=== PATIENT | female | born 1930 | race Caucasian/White ===

== ENCOUNTER 2017-09-14 08:18 | Emergency (ER) | payer MEDICARE, MEDICAID ==
--- NOTE | 2017-09-14 09:46 | EDM.PDOC ---
ED HPI GENERAL MEDICAL PROBLEM - General Chief Complaint: General Stated Complaint: Fall without LOC Time Seen by Provider: 09/14/17 08:35 Source of Information: Reports: Other ([facility] staff/EMS) History Limitations: Reports: Altered Mental Status (dementia) - History of Present Illness INITIAL COMMENTS - FREE TEXT/NARRATIVE: Patient sent here for evaluation after falling in room. Has history of falls/ syncope. BP noted to be low at time of incident today. Hit head on a shelf. No specifically known LOC. Was complaining of some head discomfort on scene. Also complained of some back discomfort but has chronic back pain of this same nature per PA staff. Hx of dementia. Is pleasant, talking with staff. One member familiar with patient thought that patient's speech might be a bit slurred compared to normal, stroke code called. History of dementia. - Related Data Allergies Allergy/AdvReac Type Severity Reaction Status Date / Time adhesive tape Allergy Irritabilit Verified 03/23/16 14:36 y azithromycin Allergy Cannot Verified 03/23/16 14:36 Remember Latex, Natural Rubber Allergy Irritabilit Verified 03/23/16 14:36 y levofloxacin [From Levaquin] Allergy Cannot Verified 03/23/16 14:36 Remember lisinopril Allergy Cannot Verified 03/23/16 14:33 Remember morphine Allergy Cannot Verified 03/23/16 14:33 Remember nitrofurantoin Allergy Cannot Verified 03/23/16 14:36 [From Macrodantin] Remember Penicillins Allergy Cannot Verified 03/23/16 14:36 Remember Sulfa (Sulfonamide Allergy Cannot Verified 03/23/16 14:36 Antibiotics) Remember cleaning products Allergy Cannot Uncoded 03/23/16 14:33 Remember Home Meds: Home Meds Aspirin [Halfprin] 81 mg PO DAILY@1800 04/30/14 [History] Calcium Carbonate/Vitamin D3 [Calcium 600-Vit D3 400 Tablet] 400 - 600 mg PO BID 04/30/14 [History] Cyanocobalamin (Vitamin B12) [Vitamin B12] 1,000 mcg IM Q30D 04/30/14 [History] Donepezil [Aricept] 10 mg PO BEDTIME 04/30/14 [History] Ferrous Sulfate 325 mg PO DAILY 04/30/14 [History] Levothyroxine [Synthroid] 75 mcg PO DAILY 04/30/14 [History] Multivitamin W/Iron, Minerals [Theratrum Complete 50 Plus] 1 tab PO DAILY [History] Simvastatin 20 mg PO BEDTIME 04/30/14 [History] amLODIPine Besylate [Amlodipine Besylate] 10 mg PO DAILY 04/30/14 [History] Nitroglycerin [Nitrostat] 0.4 mg SL Q5M PRN 10/13/14 [History] Ascorbic Acid [Vitamin C] 250 mg PO DAILY@18 03/03/16 [History] Cetirizine [ZyrTEC] 10 mg PO DAILY 03/03/16 [History] Light Mineral Oil/Min Oil/Pf [Retaine Mgd Eye Drops] 1 each OP Q12H 03/03/16 [ History] Sennosides [Senna] 8.6 mg PO DAILY 03/03/16 [History] traMADol HCl [Ultram] 50 mg PO Q12H 03/03/16 [History] Acetaminophen [Tylenol] 650 mg PO Q4HR PRN 03/07/16 [History] Clindamycin HCl [Cleocin] 4 cap PO ASDIRECTED PRN 03/07/16 [History] Memantine [Namenda] 10 mg PO BID 09/14/17 [History] Flint-3 Fatty Acids/Fish Oil [Fish Oil 1,000 mg Softgel] 2 cap PO DAILY [History] Omeprazole Magnesium [Prilosec Otc] 20 mg PO DAILY 09/14/17 [History] PARoxetine [Paxil] 5 mg PO DAILY 09/14/17 [History] Potassium Chloride 10 meq PO DAILY 09/14/17 [History] Trolamine Salicylate [Arthricreme] 1 applic TOP Q12HR PRN 09/14/17 [History] Past Medical History Cardiovascular History: Reports: Arrhythmia, Hypertension Other Cardiovascular History: Cardiac Dysrhythemia. Cardiac Valvular Disease Musculoskeletal History: Reports: Arthritis, Back Pain, Chronic, Osteoarthritis , Other (See Below) (severe degenerative changes noted on neck CT) Neurological History: Reports: Alzheimers Disease, Migraines Psychiatric History: Reports: Alzheimers Disease Endocrine/Metabolic History: Reports: Hypothyroidism - Past Surgical History Musculoskeletal Surgical History: Reports: Other (See Below) Social & Family History - Tobacco Use Smoking Status *Q: Never Smoker Second Hand Smoke Exposure: No - Caffeine Use Caffeine Use: Reports: Coffee - Alcohol Use Days Per Week of Alcohol Use: 0 - Recreational Drug Use Recreational Drug Use: No ED ROS GENERAL - Review of Systems Review Of Systems: ROS reveals no pertinent complaints other than HPI. (limited by patient's dementia) HEENT: Reports: Nose Pain. Denies: Dental Pain, Eye Pain Respiratory: Reports: No Symptoms. Denies: Shortness of Breath Cardiovascular: Reports: No Symptoms GI/Abdominal: Reports: No Symptoms : Reports: No Symptoms Musculoskeletal: Reports: Other (left sided discomfort lower rib margin laterally) Skin: Reports: Wound (small nasal laceration/contusion right side head) Neurological: Reports: Dizziness (earlier at [facility]). Denies: Headache ED EXAM, GENERAL - Physical Exam Exam: See Below Exam Limited By: No Limitations General Appearance: Alert, WD/WN, No Apparent Distress Eye Exam: Bilateral Eye: EOMI, PERRL Ears: Normal External Exam, Normal Canal, Hearing Grossly Normal, Normal TMs Nose: Normal Mucosa, Nasal Tenderness (mild), Nasal Swelling (mild, over bridge. Septum appears intact). No: Nasal Deformity Throat/Mouth: Normal Inspection, Normal Lips, Normal Teeth, Normal Oropharynx, Normal Voice, No Airway Compromise Head: Other (mild abrasion without swelling noted right lateral forehead/jewish) Neck: Normal Inspection, Supple, Non-Tender, Full Range of Motion Respiratory/Chest: No Respiratory Distress, Lungs Clear, Normal Breath Sounds, No Accessory Muscle Use, Other (very mild discomfort with palpation of left side of chest at lower rib margin. No swelling/bruising/crepitus/erythema) Cardiovascular: Regular Rate, Rhythm, No Edema, Systolic Murmur Peripheral Pulses: 2+: Radial (L), Radial (R), Dorsalis Pedis (L), Dorsalis Pedis (R) GI/Abdominal: Normal Bowel Sounds, Soft, Non-Tender, No Distention (Female) Exam: Deferred Rectal (Female) Exam: Deferred Back Exam: No: CVA Tenderness (L), CVA Tenderness (R), Muscle Spasm, Paraspinal Tenderness, Vertebral Tenderness Extremities: Normal Range of Motion (for age), Non-Tender, Normal Capillary Refill Neurological: Alert, CN II-XII Intact, No Motor/Sensory Deficits, Memory Loss Remote Events, Memory Loss Recent Events Psychiatric: Normal Affect, Normal Mood Skin Exam: Warm, Dry, Other (1cm superficial laceration over bridge of nose, mild abrasion right jewish and above upper lip). No: Ecchymosis ED GENERAL MEDICAL PROCEDURES - Laceration/Wound Repair Nose Lac/wound length in cm: 1 Appearance: Superficial, Clean Skin Prep: Isopropyl Alcohol (Alcohol) Exploration/Debridement/Repair: Wound Explored, In a Bloodless Field, Explored to Base, No Foreign Material Found Closed with: Dermabond Sterile Dressing Applied: None Complications: No EKG INTERPRETATION EKG Date: 09/14/17 Time: 08:44 Rhythm: NSR Rate (Beats/Min): 64 Dexter: Normal P-Wave: Present QRS: Normal ST-T: Other (Flattening of T waves observed in lateral leads) QT: Normal Comparison: NA - No Prior EKG Course - Orders/Labs/Meds Orders: Active Orders 24 hr Category Date Time Status Blood Glucose Check, Bedside [RC] ONETIME Care 09/14/17 08:18 Active EKG Documentation Completion [RC] ASDIRECTED Care 09/14/17 08:29 Active C-Spine [Cervical Spine wo Cont] [CT] Stat Exams 09/14/17 08:21 Taken Head wo Cont [CT] Stat Exams 09/14/17 08:21 Taken Soft Tissue Neck wo Cont [CT] Stat Exams 09/14/17 08:21 Stop Req PROLACTIN [REF] Stat Lab 09/14/17 08:33 Received Labs: Laboratory Tests 09/14/17 09/14/17 09/14/17 Range/Units 08:33 08:33 08:33 WBC 10.2 (4.0-10.2) K/uL RBC 4.11 (3.77-5.09) M/uL Hgb 12.5 (11.7-15.5) g/dL Hct 38.0 (34.0-46.0) % MCV 92.5 (84.0-98.0) fL MCH 30.4 (28.2-33.3) pg MCHC 32.9 (31.7-36.0) g/dL RDW 13.0 (11.2-14.1) % Plt Count 242 (150-350) K/uL Neut % (Auto) 69.5 (45.0-80.0) % Lymph % (Auto) 16.4 (10.0-50.0) % Moody % (Auto) 11.5 (2.0-14.0) % Eos % (Auto) 2.4 (0.0-5.0) % Baso % (Auto) 0.2 (0.0-2.0) % Neut # (Auto) 7.10 H (1.40-7.00) K/uL Lymph # (Auto) 1.68 (0.50-3.50) K/uL Moody # (Auto) 1.18 H (0.00-1.00) K/uL Eos # (Auto) 0.25 (0.00-0.50) K/uL Baso # (Auto) 0.02 (0.00-0.20) K/uL PT 10.7 (9.8-11.7) SEC INR 1.0 APTT (22.1-29.8) SEC D-Dimer, Quantitative (0-400) ng/mL Sodium 141 (136-145) mmol/L Potassium 3.5 (3.5-5.1) mmol/L Chloride 102 (98-107) mmol/L Carbon Dioxide 27.0 (21.0-32.0) mmol/L BUN 17 (7-18) mg/dL Creatinine 0.94 (0.51-1.17) mg/dL Est Cr Clr Drug Dosing 31.43 mL/min Estimated GFR (MDRD) 57 mL/min Glucose 127 H (74-106) mg/dL Calcium 9.4 (8.5-10.1) mg/dL Magnesium 1.7 L (1.8-2.4) mg/dL Total Bilirubin 0.4 (0.2-1.0) mg/dL AST 22 (15-37) U/L ALT 21 (12-78) U/L Alkaline Phosphatase 99 (46-116) IU/L Creatine Kinase 92 (26-308) U/L Creatine Kinase Index 1.8 (0.0-2.5) % CK-MB (CK-2) 1.70 (0.00-3.60) ng/mL Troponin I 0.000 (0.000-0.056) ng/mL NT-Pro-B Natriuret Pep 357 H (0-125) pg/mL Total Protein 7.8 (6.4-8.2) g/dL Albumin 3.6 (3.4-5.0) g/dL 09/14/17 09/14/17 Range/Units 08:33 08:33 WBC (4.0-10.2) K/uL RBC (3.77-5.09) M/uL Hgb (11.7-15.5) g/dL Hct (34.0-46.0) % MCV (84.0-98.0) fL MCH (28.2-33.3) pg MCHC (31.7-36.0) g/dL RDW (11.2-14.1) % Plt Count (150-350) K/uL Neut % (Auto) (45.0-80.0) % Lymph % (Auto) (10.0-50.0) % Moody % (Auto) (2.0-14.0) % Eos % (Auto) (0.0-5.0) % Baso % (Auto) (0.0-2.0) % Neut # (Auto) (1.40-7.00) K/uL Lymph # (Auto) (0.50-3.50) K/uL Moody # (Auto) (0.00-1.00) K/uL Eos # (Auto) (0.00-0.50) K/uL Baso # (Auto) (0.00-0.20) K/uL PT (9.8-11.7) SEC INR APTT 25.3 (22.1-29.8) SEC D-Dimer, Quantitative 1120 H (0-400) ng/mL Sodium (136-145) mmol/L Potassium (3.5-5.1) mmol/L Chloride (98-107) mmol/L Carbon Dioxide (21.0-32.0) mmol/L BUN (7-18) mg/dL Creatinine (0.51-1.17) mg/dL Est Cr Clr Drug Dosing mL/min Estimated GFR (MDRD) mL/min Glucose (74-106) mg/dL Calcium (8.5-10.1) mg/dL Magnesium (1.8-2.4) mg/dL Total Bilirubin (0.2-1.0) mg/dL AST (15-37) U/L ALT (12-78) U/L Alkaline Phosphatase (46-116) IU/L Creatine Kinase (26-308) U/L Creatine Kinase Index (0.0-2.5) % CK-MB (CK-2) (0.00-3.60) ng/mL Troponin I (0.000-0.056) ng/mL NT-Pro-B Natriuret Pep (0-125) pg/mL Total Protein (6.4-8.2) g/dL Albumin (3.4-5.0) g/dL - Radiology Interpretation CT Results Time: 09:17 (No acute changes noted to head/neck. Has generalized atrophy/age related vascular changes. Chronic arthritis/bony changes to cervical spine. ) - Re-Assessments/Exams Free Text/Narrative Re-Assessment/Exam: 09/14/17 09:57 Patient rested comfortably while workup being performed. If asked if she had any pain, she would complain of discomfort in the lateral mid left back/side. No signs of trauma to this area and this is chronic pain per [facility] report earlier. No other focal tenderness/signs of injury noted on trunk/arms/legs. Labs unremarkable except for elevated DDimer. Patient denies SOB . RR 12-15 with O2 sats 94-96%. Suspect elevation is likely from another cause. CT scan not indicated at this time but should be considered if patient is noted to have respiratory changes suggestive of possible PE. Laceration on nose closed with tissue glue. Plan at this time is to have patient return to [facility] with further follow up as needed. Free Text/Narrative Re-Assessment/Exam: 09/14/17 10:10 Able to ambulate safely using walker. Orthostatics unremarkable. Departure - Departure Time of Disposition: 10:10 Disposition: DC/Tfer to SNF 03 Condition: Good Clinical Impression: Elevated d-dimer Fall Qualifiers: Encounter type: initial encounter Qualified Code(s): W19.XXXA - Unspecified fall, initial encounter Laceration of nose Qualifiers: Encounter type: initial encounter Qualified Code(s): S01.21XA - Laceration without foreign body of nose, initial encounter Head contusion Qualifiers: Encounter type: initial encounter Contusion of head detail: unspecified part of head Qualified Code(s): S00.93XA - Contusion of unspecified part of head, initial encounter - Discharge Information Referrals: Brittney Barragan MD [Primary Care Provider] - Additional Instructions: Neuro checks every 4 hours while awake for the next 24 hours. Follow up as needed if acute changes are observed. Recommend BP checks daily prior to BP medication administration to observe for BP trends. If BP is low, may need to adjust medication. Low BP may have contributed to patient's fall this morning. Hold BP meds if Blood pressure is below 120/80. DDimer was elevated today but no complaint of shortness of breath, normal respiratory rate, O2 sats 95%. Suspect due to patient's CHF/other causes. However, if increased SOB is noted, follow up with ' clinic to see if scan should be scheduled. Laceration closed with tissue glue. Avoid getting this area wet for the next 5 days to allow wound to heal. Follow up with [facility] on [facility] rounds next week to see how patient is doing/ BP trends. Follow up otherwise as needed if acute problems develop. - My Orders Last 24 Hours: My Active Orders 09/14/17 08:18 Blood Glucose Check, Bedside [RC] ONETIME 09/14/17 08:21 C-Spine [Cervical Spine wo Cont] [CT] Stat Head wo Cont [CT] Stat Soft Tissue Neck wo Cont [CT] Stat 09/14/17 08:29 EKG Documentation Completion [RC] ASDIRECTED 09/14/17 08:33 PROLACTIN [REF] Stat - Assessment/Plan Last 24 Hours: My Active Orders 09/14/17 08:18 Blood Glucose Check, Bedside [RC] ONETIME 09/14/17 08:21 C-Spine [Cervical Spine wo Cont] [CT] Stat Head wo Cont [CT] Stat Soft Tissue Neck wo Cont [CT] Stat 09/14/17 08:29 EKG Documentation Completion [RC] ASDIRECTED 09/14/17 08:33 PROLACTIN [REF] Stat
[2017-09-14] MEDS: Bacitracin/Neomycin/Polymyxin B Oint 0.9 GM U/D Packet ONE (10:16)
[2017-09-14 10:23] VITALS: BP 120/60
[2017-09-14] MEDS ORDERED: Sodium Chloride 0.9% 10 ML Syringe FLUSH PRN (10:48)
== END 2017-09-14 10:40 ==
LOC: LL.ED 08:18
DX: S01.21XA Laceration without foreign body of nose, initial encounter (principal); R79.89 Other specified abnormal findings of blood chemistry; F03.90 Unspecified dementia, unspecified severity, without behavioral disturbance, psychotic disturbance, mood disturbance, and anxiety; I10 Essential (primary) hypertension; E03.9 Hypothyroidism, unspecified; Z88.1 Allergy status to other antibiotic agents; Z91.040 Latex allergy status; Z88.5 Allergy status to narcotic agent; Z88.2 Allergy status to sulfonamides; Z88.0 Allergy status to penicillin; Z79.82 Long term (current) use of aspirin; Z79.899 Other long term (current) drug therapy; W19.XXXA Unspecified fall, initial encounter; W22.8XXA Striking against or struck by other objects, initial encounter
CPT/HCPCS: 36000; 36415; 70450; 72125; 80053; 82550; 82553; 83735; 83880; 84146; 84484; 85025; 85379; 85610; 85730; 93005; 99285